=== PATIENT | female | born 1970 | race Hispanic/Latino ===

== ENCOUNTER 2022-05-25 10:19 | Emergency (ER) | payer SELFPAY ==
[~2022-05-25] VITALS: Ht 162.6 cm; Wt 77.3 kg
[~2022-05-25 10:19] MED LIST: LORTAB 7.5 PO; MECLIZINE25 MG PO; PEPCID20 MG PO
[2022-05-25 10:26] VITALS: BP 93/77
[2022-05-25 10:30] VITALS: BP 111/79
[2022-05-25 10:45] VITALS: BP 117/78
[2022-05-25 11:15] VITALS: BP 108/77
[2022-05-25 11:30] VITALS: BP 119/74
[2022-05-25 11:45] VITALS: BP 116/73
== END 2022-05-25 11:56 | disposition home or self-care (01) | DRG 103 ==
LOC: ED 10:19
DX: R51.9 Headache, unspecified (principal); E78.5 Hyperlipidemia, unspecified; Z20.822 Contact with and (suspected) exposure to COVID-19

== ENCOUNTER 2022-05-28 14:23 | Emergency (ER) | payer SELFPAY ==
[2022-05-28] VITALS (13 sets, daily range): BP systolic 98–172; BP diastolic 68–107
[~2022-05-28] VITALS: Ht 162.6 cm; Wt 73.0 kg
[2022-05-28] MEDS ORDERED: MECLIZINE25 M1 PO (14:49)
[2022-05-28] MEDS ORDERED: TOPIRAMATE50 MG PO (14:50)
[2022-05-28 14:53] LABS: HEMATOCRIT 42.6 % (37.0-47.0); HEMOGLOBIN 13.8 g/dl (12.0-16.0); IMMATURE GRANULOCYTES 0.2 % (0.0-5.0); MEAN CORPUSCULAR HGB 26.9 pG CALC (26.0-32.0); MEAN CORPUSCULAR HGB CONC 32.4 g/dL CAL (32.0-36.0); NEUT# 2.28 thou/uL (2.00-7.15); RED BLOOD COUNT 5.13 mill/uL (4.20-5.60); RED CELL DISTRI WIDTH 13.2 % (11.5-15.5)
[2022-05-28 15:05] LABS: ALKALINE PHOSPHATASE 69 u/l (38-126); ANION GAP 12 (6-22 (CALC)); BILIRUBIN, TOTAL 0.4 mg/dL (0.0-1.4); BUN 13 mg/dL (7-17); BUN/CREATININE RATIO 16 (12-20 (CALC)); CARBON DIOXIDE 26 mmol/l (22-30); CHLORIDE 106 mmol/l (95-108); CREATININE 0.8 mg/dL (0.5-1.0); GFR FOR AFR.AMER. > 60 ML/MIN (>=60 (CALC)); GFR OTHER RACES > 60 ML/MIN (>=60 (CALC)); SODIUM 139 mmol/l (137-146); TOTAL PROTEIN 7.5 g/dL (6.3-8.2)
[2022-05-28 15:14] LABS: SGOT/AST 67 u/l (14-36)
[2022-05-28 15:18] LABS: MYOGLOBIN 35 ng/mL (0 - 62)
[2022-05-28 16:05] LABS: URINE BILIRUBIN - DIPSTICK NEGATIVE (NEGATIVE); URINE BLOOD DIPSTICK NEGATIVE (NEGATIVE); URINE COLOR YELLOW; URINE GLUCOSE - DIPSTICK NEGATIVE (NEGATIVE); URINE KETONE NEGATIVE (NEGATIVE); URINE PROTEIN - DIPSTICK NEGATIVE (NEG-TRACE); URINE UROBILINOGEN - DIPSTICK 0.2 E.U./dL (0.2)
[2022-05-28 16:10] LABS: URINE LEUK ESTERASE MODERATE (NEGATIVE); URINE NITRITE - DIPSTICK NEGATIVE (Negative)
[2022-05-28 16:20] LABS: URINE RBC 0-2 RBC/hpf (0-5); URINE SQUAMOUS EPITHELIAL CELL FEW EPI/hpf (0-FEW)
[2022-05-28] MEDS ORDERED: FIORICET PO (17:23)
== END 2022-05-28 17:57 | disposition home or self-care (01) | DRG 103 ==
LOC: ED 14:23
PROVIDERS: Emergency Medicine
DX: R51.9 Headache, unspecified (principal); R42 Dizziness and giddiness; F32.A Depression, unspecified; E78.5 Hyperlipidemia, unspecified